=== PATIENT | male | born 1945 | race Caucasian/White ===

== ENCOUNTER 2016-12-28 08:21 | Observation (INO) | payer OTHER ==
[2016-12-28] MEDS ORDERED: diphenhydrAMINE 25 MG CAP PO ONE (08:23)
[2016-12-28] MEDS ORDERED: ASPIRIN EC 325 MG TAB PO ONE (08:23)
[2016-12-28] MEDS ORDERED: FAMOTIDINE 20 MG TAB PO ONE (08:23)
[2016-12-28] MEDS ORDERED: NS 1,000 ML IV ONE (08:23)
[2016-12-28] MEDS ORDERED: DIAZEPAM 5 MG TAB PO ONE (08:23)
[2016-12-28] MEDS ORDERED: NS 1,000 ML IV SCH ×2 (08:30→17:00)
[2016-12-28] MEDS ORDERED: SODIUM BICARBONATE 150 MEQ in D5W 1,000 ML IV SCH (08:30)
[2016-12-28 08:57] LABS: % IMMATURE GRANULYOCYTES 0.4 % (0.0-1.1); ABSOLUTE IMMATURE GRANULOCYTES 0.03 10^3/uL (0.00-0.10); ADD DIFF? NO; ADD MORPH? NO; ADD SCAN? NO; ATYPICAL LYMPHOCYTE FLAG 10 (0-99); FRAGMENT RBC FLAG 0 (0-99); HEMATOCRIT 43.7 % (40.0-51.0); HEMOGLOBIN 13.9 g/dL (13.7-17.5); LEFT SHIFT FLG 0 (0-99); LIPEMIA HEMOLYSIS FLAG 80 (0-99); MEAN CELL HEMOGLOBIN CONCENTR. 31.8 g/dL (32.4-36.7); MEAN CELL VOLUME 87.9 fL (81.5-99.8); MEAN PLATELET VOLUME 9.3 fL (8.7-11.7); PLATELET CLUMPS FLAG 10 (0-99); PLATELET COUNT 262 10^3/uL (150-400); RED BLOOD CELL COUNT 4.97 10^6/uL (4.40-6.38); RED CELL DISTRIBUTION WIDTH 15.7 % (11.5-15.2)
--- NOTE | 2016-12-28 09:03 | CPEKG ---
Heart Rate: 69 RR Interval: 870 P-R Interval: 196 QRSD Interval: 98 QT Interval: 416 QTC Interval: 446 P [place]: 18 QRS [place]: 80 T Wave [place]: -8 EKG Severity - BORDERLINE ECG - EKG Impression: SINUS RHYTHM EKG Impression: ATRIAL PREMATURE COMPLEX EKG Impression: BORDERLINE INFERIOR Q WAVES EKG Impression: MINIMAL ST DEPRESSION, DIFFUSE LEADS Electronically Signed By: Donny Ellsworth 28-Dec-2016 09:47:59
[2016-12-28 09:09] LABS: ANION GAP 11 mEq/L (8-16); CALCIUM 10.3 mg/dL (8.5-10.4); CARBON DIOXIDE 22 mEq/l (22-31); CHLORIDE 101 mEq/L (97-110); CHOLESTEROL 152 mg/dL (140-220); CHOLESTEROL/HDL RATIO 4.22 RATIO (1.00-4.97); GLOMERULAR FILTRATION RATE 33; GLUCOSE 139 mg/dL (70-100); HIGH DENSITY LIPOPROTEIN 36 mg/dL (40-65); LDL/HDL RATIO 2.64 RATIO (1.00-3.64); LOW DENSITY LIPOPROTEIN 95 mg/dL (80-100); MAGNESIUM 2.1 mg/dL (1.6-2.3); NON-HIGH DENSITY LIPOPROTEIN 116 mg/dL (90-129); POTASSIUM 4.2 mEq/L (3.5-5.2); SODIUM 134 mEq/L (134-144); TRIGLYCERIDE 108 mg/dL (40-150); VERY LOW DENSITY LIPOPROTEINS 21 mg/dL (8-25)
[2016-12-28 09:11] LABS: INR 1.16 (0.83-1.16); PROTIME(PATIENT) 14.8 SEC (12.0-15.0)
[2016-12-28] MEDS ORDERED: NICOTINE 21 MG/24 HR PATCH TD ONE (09:30)
[2016-12-28] MEDS ORDERED: BIVALIRUDIN 250 MG/5 ML VIAL IV ONE (14:29)
--- NOTE | 2016-12-28 15:35 | CPEKG ---
Heart Rate: 66 RR Interval: 909 P-R Interval: 200 QRSD Interval: 100 QT Interval: 468 QTC Interval: 491 P [place]: 60 QRS [place]: 85 T Wave [place]: -35 EKG Severity - ABNORMAL ECG - EKG Impression: SINUS RHYTHM EKG Impression: BORDERLINE RIGHT AXIS DEVIATION EKG Impression: BORDERLINE INFERIOR Q WAVES EKG Impression: BORDERLINE T ABNORMALITIES, INFERIOR LEADS EKG Impression: BORDERLINE PROLONGED QT INTERVAL Electronically Signed By: Donny Ellsworth 28-Dec-2016 16:36:05
[2016-12-28] MEDS ORDERED: ALBUTEROL 60 PUFFS/8 GM MDI IH PRN (16:39)
[2016-12-28] MEDS ORDERED: LORazepam 2 MG/ML INJ IVP PRN (16:49)
[2016-12-28] MEDS ORDERED: TEMAZEPAM 15 MG CAP PO PRN (16:49)
[2016-12-28] MEDS ORDERED: ATROPINE SULFATE 1 MG/10 ML SYR IVP PRN (16:49)
[2016-12-28] MEDS ORDERED: PRASUGREL HCL 10 MG TAB PO ONE (16:49)
[2016-12-28] MEDS ORDERED: ONDANSETRON DISINTEGRATING 4 MG TAB PO PRN (16:49)
[2016-12-28] MEDS ORDERED: NITROGLYCERIN 0.4 MG BTL SL PRN (16:49)
[2016-12-28] MEDS ORDERED: ONDANSETRON 4 MG/2 ML VIAL IVP PRN (16:49)
[2016-12-28] MEDS ORDERED: HYDROCODONE/APAP 5/325 TAB PO PRN (16:49)
[2016-12-28] MEDS ORDERED: ACETAMINOPHEN 325 MG TAB PO PRN (16:49)
--- NOTE | 2016-12-28 17:02 | PDDXCAT ---
Diagnostic Cath Note - . Date: 12/28/16 [employer] Supervisor: Claus Mutuel Machine Operator: Claus Indication: other (Risk factors for CAD; Increased dyspnea on exertion; COPD with elevated PA pressure; Anteroseptal hypokinesis on echo; elevaed BNP.) - Procedure Access: right groin Procedure: left heart catheterization, coronary angiography, right heart catheterization, other (PCI of the LAD) - Materials Left Heart Cath size: 6F Left Heart Cath materials: standard multipack (JL4, JR4, pigtail) Right Heart Cath size: 7F Right Heart Cath materials: PWP catheter - Findings-Left Heart Catheterization LM: Normal. LAD: Mid-LAD with very eccentric >90% stenosis; o/w mild irregularities. LCX: Mild irregularities. RCA: Proximal to mid-RCA appearance c/w recanalized chronic total occlusion; also has knqw-ci-usluj collaterals. LVEF: No LV-gram secondary to renal insufficiency. - Findings-Right Heart Catheterization RA: 15 mmHg RV: 64/20 mmHg PA: 64/36/44 mmHg O2 sat 67.0% PAOP: 26 mmHg AO: 151/81/107 mmHg O2 sat 95.0% CO: 4.8 L/min CI: 2.17 L/min/sq mtr Complications: None Estimated blood loss: <50ml Closure method: Angioseal Assessment: 1) Coronary artery disease as described above. 2) Successful PCI of the LAD using a single drug coated stent. 3) Moderate pulmonary hyperension. Intervention: Based on the patient's clinical history and diagnostic angiography, the decision was made to perform PCI of the high-grade mid-LAD lesion. The patient received intravenous Angiomax. A 6 [place] CLS 3.5 guide catheter was advanced to the apical portion of the left anterior descending. Predilatation of the target lesion was carried out using a 3.0 x 12 mm Emerge balloon. A 3.5 x 16 mm Synergy stent was then advanced into position and deployed at high pressure. Final angiograms demonstrated 0% residual stenosis and CECELIA-III flow.
[2016-12-28] MEDS: METOPROLOL TARTRATE 25 MG TAB PO SCH (19:32)
[2016-12-28] MEDS ORDERED: ACETYLCYSTEINE 600 MG PO SCH (21:00)
[2016-12-29 04:32] LABS: % IMMATURE GRANULYOCYTES 0.4 % (0.0-1.1); ABSOLUTE IMMATURE GRANULOCYTES 0.03 10^3/uL (0.00-0.10); ADD DIFF? NO; ADD MORPH? NO; ADD SCAN? NO; ATYPICAL LYMPHOCYTE FLAG 0 (0-99); FRAGMENT RBC FLAG 0 (0-99); HEMATOCRIT 37.4 % (40.0-51.0); HEMOGLOBIN 12.2 g/dL (13.7-17.5); LEFT SHIFT FLG 0 (0-99); LIPEMIA HEMOLYSIS FLAG 80 (0-99); MEAN CELL HEMOGLOBIN 28.3 pg (27.9-34.1); MEAN CELL HEMOGLOBIN CONCENTR. 32.6 g/dL (32.4-36.7); MEAN CELL VOLUME 86.8 fL (81.5-99.8); MEAN PLATELET VOLUME 9.5 fL (8.7-11.7); PLATELET CLUMPS FLAG 0 (0-99); PLATELET COUNT 210 10^3/uL (150-400); RED BLOOD CELL COUNT 4.31 10^6/uL (4.40-6.38); RED CELL DISTRIBUTION WIDTH 15.6 % (11.5-15.2)
[2016-12-29 05:03] LABS: ALBUMIN 3.1 g/dL (3.5-5.0); ASPARTATE AMINOTRANSFERASE 12 IU/L (17-59); BILIRUBIN,TOTAL 0.5 mg/dL (0.1-1.4); CALCIUM 9.6 mg/dL (8.5-10.4); CARBON DIOXIDE 23 mEq/l (22-31); CHLORIDE 103 mEq/L (97-110); CREATININE 1.9 mg/dL (0.7-1.3); GLOMERULAR FILTRATION RATE 35; GLUCOSE 131 mg/dL (70-100); LACTATE DEHYDROGENASE 319 IU/L (313-618); MAGNESIUM 1.9 mg/dL (1.6-2.3); SODIUM 134 mEq/L (134-144)
[2016-12-29 05:52] LABS: ANION GAP 8 mEq/L (8-16)
[2016-12-29 07:22] VITALS: PULSE 83; RESP 14; TEMP 97.7; O2SAT 91
--- NOTE | 2016-12-29 08:56 | CPEKG ---
Heart Rate: 82 RR Interval: 732 P-R Interval: 188 QRSD Interval: 92 QT Interval: 452 QTC Interval: 528 P [place]: 61 QRS [place]: 81 T Wave [place]: -22 EKG Severity - ABNORMAL ECG - EKG Impression: SINUS RHYTHM EKG Impression: BORDERLINE RIGHT AXIS DEVIATION EKG Impression: BORDERLINE INFERIOR Q WAVES EKG Impression: PROLONGED QT INTERVAL Electronically Signed By: Donny Ellsworth 29-Dec-2016 09:20:50
[2016-12-29] MEDS ORDERED: PRASUGREL HCL 10 MG TAB PO SCH (09:00)
[2016-12-29] MEDS ORDERED: ASPIRIN 325 MG TAB PO SCH (09:00)
[2016-12-29] MEDS ORDERED: ATORVASTATIN CALCIUM 20 MG TAB PO SCH (09:00)
[2016-12-29] MEDS ORDERED: NICOTINE 21 MG/24 HR PATCH TD SCH (09:00)
[2016-12-29] MEDS ORDERED: TAMSULOSIN HCL 0.4 MG CAP PO SCH (09:00)
[2016-12-29] MEDS: METOPROLOL TARTRATE 25 MG TAB PO SCH (09:13)
[2016-12-29] MEDS ORDERED: amLODIPine BESYLATE 5 MG TAB PO SCH (09:45)
[2016-12-29 10:39] VITALS: BP 132/75
--- NOTE | 2016-12-29 14:34 | GDS ---
[f rep st] DISCHARGE SUMMARY REASON FOR ADMISSION: Coronary artery disease. HOSPITAL COURSE: Please refer to the recent office note by Lul Amato NP, which serves as th e admission history and physical for this hospital encounter. Briefly, the patient is a 71-year-old male with a history of COPD, diabetes, and a history of PVCs. He was referred by his PCP because o f significantly worsening dyspnea on exertion and a BNP level which was elevated at approximately 18 00. An echocardiogram was obtained which suggested anteroapical hypokinesis. The patient has no pr ior clinical cardiac history. Given his risk profile and abnormal echocardiogram, the decision was made to perform diagnostic cardiac catheterization. He underwent right and left heart catheterizati on on 12/28/2016. Left ventriculography was deferred secondary to chronic kidney disease. Right he art pressures demonstrated moderate pulmonary hypertension with a PA systolic pressure in the 60s. Coronary angiography revealed a recanalized chronic total occlusion of the [id number]-kz-[id number] RCA. The distal vessel also received tayc-ow-xpyui collaterals. The circumflex was free of any significant atherosclerotic disease. The LAD had a mid-vessel eccentric 90% lesion. He underwent PCI of the mi d LAD with placement of a single drug-coated stent measuring 3.5 x 16 mm. Overnight, he has been st able without any hemorrhagic complications at his right femoral catheterization site. He is not exp eriencing any chest discomfort or palpitations. He does have baseline dyspnea related to his diagno sis of COPD. RECOMMENDATIONS AND DISPOSITION: Patient is discharged in stable condition. It was recommended johanne t he follow a heart-healthy diet and begin at least a basic walking program. He should be contacted by Cardiac Rehabilitation. He has a lifelong heavy smoking habit and was encouraged to give strong consideration to quitting. His also smokes, and she expressed interest in making it a joint p roject. Please refer to the medication reconciliation section of the electronic record. He had rec ently been started on low-dose metoprolol at 12.5 mg twice daily. I would like for him to increase this to 25 mg twice daily. His blood pressure has been elevated throughout his hospital stay; there fore, amlodipine 5 mg daily will be added and can be increased as needed. His pre-catheterization l aboratory studies demonstrated an LDL cholesterol of 95. Given the diagnosis of coronary artery dis ease and diabetes, his goal LDL should be less than 70. He will start atorvastatin 20 mg daily. He will need dual anti-platelet therapy for the next 12 months. Currently, that combination consists of full-strength aspirin and Effient 10 mg daily. Genetic testing to determine his clopidogrel meta bolism was sent this morning. The results will be reviewed at his upcoming office appointment to davalos whether or not he can be switched to clopidogrel. He has a followup appointment with Lul shin NP, on January 15 at 11:00 in the morning in our [place] office. DISCHARGE DIAGNOSES: 1. Coronary artery disease. 2. Hypertension. 3. Pulmonary hypertension. 4. Type 2 diabetes. 5. Status post percutaneous coronary intervention of the left anterior descending. /[id number]/MODL
[2016-12-29] MEDS ORDERED: METOPROLOL TARTRATE 25 MG TAB PO SCH (21:00)
[2017-01-01 15:51] LABS: 2C19S INTERPRETATION See Comments
== END 2016-12-29 13:10 | disposition home or self-care (01) ==
LOC: FCATH 08:21 → F2W 15:13 → UNDOADMOB 15:13 → F2W 16:49 → MERGE 16:49 → F2W 17:52
PROVIDERS: ADMIT Internal Medicine Interventional Cardiology; ATTEND Internal Medicine Interventional Cardiology
PROC: 027034Z Dilation of Coronary Artery, One Artery with Drug-eluting Intraluminal Device, Percutaneous Approach (ICD-10-PCS; principal; 2016-12-28)
PROC: B2111ZZ Fluoroscopy of Multiple Coronary Arteries using Low Osmolar Contrast (ICD-10-PCS; principal; 2016-12-28)
PROC: 4A023N8 Measurement of Cardiac Sampling and Pressure, Bilateral, Percutaneous Approach (ICD-10-PCS; principal; 2016-12-28)
DX: I25.10 Atherosclerotic heart disease of native coronary artery without angina pectoris (principal); I27.2 Other secondary pulmonary hypertension; E11.9 Type 2 diabetes mellitus without complications; J44.9 Chronic obstructive pulmonary disease, unspecified; N18.9 Chronic kidney disease, unspecified; F17.210 Nicotine dependence, cigarettes, uncomplicated
CPT/HCPCS: 93005; 93460; C1725; C1769; C1874; C1887; C9600; G0378; J0583; 81225-90